=== PATIENT | female | born 1985 | race Caucasian/White ===

== ENCOUNTER 2018-11-14 10:17 | Day surgery (SDC) | payer OTHER ==
[~2018-11-14 10:17] MED LIST: PROPOFOL INJ 200 MG/20 ML VIAL IV ONE
--- NOTE | 2018-11-14 12:59 | Operative Report ---
Operative Report DATE OF SURGERY: 11/14/18 Operative Report: The risks, benefits and alternatives of the procedure including the risk of bleeding, perforation requiring surgery are explained to the patient in detail and informed consent is obtained. Patient was brought back to the endoscopy suite and placed in a left, lateral decubital position. Timeout was called. Propofol medication is administered. A rectal examination is done which did not reveal any masses, tears or fissures. An Olympus videoscope was introduced into the patient's rectum. The scope was then carefully advanced all the way to the cecum. The cecum was identified by the appendiceal orifice as well as the ileocecal valve. Prep is good. Photodocumentation is obtained. Scope was then sequentially pulled back through the various segments of the colon including the ascending colon, hepatic flexure, transverse colon, splenic flexure, descending colon and finally into the rectosigmoid portions of the colon. Retroflexion maneuver is performed. The risks benefits and alternatives of the procedure explained to the patient in detail and informed consent is obtained.A GIF Olympus video scope was inserted into the patient's mouth and hypopharynx, the esophagus is identified intubated and insufflated, the scope was then advanced through the esophagus stomach and duodenum ,retroflexion maneuver is done the esophagus stomach and first and second portions of the duodenum examined. PREOPERATIVE DIAGNOSIS: Nausea vomiting, weight loss. Anemia of unclear etiology. Change of bowel habits POSTOPERATIVE DIAGNOSIS: Right-sided colon Inflammation status post biopsy. Gastritis status post biopsy. Duodenitis status post biopsy OPERATION: Colonoscopy with biopsy. EGD with biopsy SURGEON: SOILA AMBROCIO ANESTHESIA: LMAC TISSUE REMOVED OR ALTERED: As noted above. COMPLICATIONS: None. ESTIMATED BLOOD LOSS: None. INTRAOPERATIVE FINDINGS: As noted above. PROCEDURE: Patient tolerated the procedure well. No immediate postprocedure complications are noted. Patient discharged in good condition. Discharge date 11/14/2018. Discharge diet: Regular. Discharge activity: Regular. 2-3-week follow-up to discuss findings. Patient is instructed to call the office or proceed to the emergency room should there be any further proximal questions. I will wait on the pathology.
[2018-11-14 13:04] VITALS: BP 102/65
== END 2018-11-14 12:56 | disposition home or self-care (01) ==
LOC: END 10:17
PROVIDERS: ATTEND Internal Medicine Gastroenterology
DX: K52.9 Noninfective gastroenteritis and colitis, unspecified (principal); K29.80 Duodenitis without bleeding; K29.50 Unspecified chronic gastritis without bleeding; K21.9 Gastro-esophageal reflux disease without esophagitis; R63.4 Abnormal weight loss; D50.9 Iron deficiency anemia, unspecified; K58.0 Irritable bowel syndrome with diarrhea; D47.3 Essential (hemorrhagic) thrombocythemia; Z68.1 Body mass index [BMI] 19.9 or less, adult
CPT/HCPCS: 43239; 45380; 81025; 88342 ×2; 88305 ×2; J2704; 813